=== PATIENT | female | born 1950 | race Caucasian/White ===

== ENCOUNTER 2021-09-04 09:05 | Outpatient (CLI) | payer MEDICARE | END 2021-09-04 09:06 | disposition home or self-care (01) | LOC: CSHCT 09:05 | PROVIDERS: ATTEND Internal Medicine Hematology & Oncology | DX: C54.1 Malignant neoplasm of endometrium (principal); C79.51 Secondary malignant neoplasm of bone | CPT/HCPCS: 71260; 74177; 82565 ==

== ENCOUNTER 2022-03-10 09:20 | Outpatient (CLI) | payer MEDICARE ==
[2022-03-10] MEDS ORDERED: Iopamidol 300 61% 100 ML VIAL FS ONE (09:28)
== END 2022-03-10 09:21 | disposition home or self-care (01) ==
LOC: CSHCT 09:20
PROVIDERS: ATTEND Internal Medicine Hematology & Oncology
DX: C54.1 Malignant neoplasm of endometrium (principal); C79.51 Secondary malignant neoplasm of bone; R91.8 Other nonspecific abnormal finding of lung field
CPT/HCPCS: 71260; 74177; 82565

== ENCOUNTER 2022-05-19 12:21 | Outpatient (CLI) | payer MEDICARE | END 2022-05-19 12:22 | disposition home or self-care (01) | LOC: CSHCT 12:21 | PROVIDERS: ATTEND Internal Medicine Hematology & Oncology | DX: R91.8 Other nonspecific abnormal finding of lung field (principal); C54.1 Malignant neoplasm of endometrium; C79.51 Secondary malignant neoplasm of bone | CPT/HCPCS: 71250 ==

== ENCOUNTER 2023-03-09 09:00 | Outpatient (CLI) | payer MEDICARE ==
[2023-03-09] MEDS ORDERED: Iopamidol 370 76% 100 ML VIAL ONE (09:20)
== END 2023-03-09 09:01 | disposition home or self-care (01) ==
LOC: CSHCT 09:00
PROVIDERS: ATTEND Internal Medicine Hematology & Oncology
DX: C54.1 Malignant neoplasm of endometrium (principal); C79.51 Secondary malignant neoplasm of bone; Z90.710 Acquired absence of both cervix and uterus; K44.9 Diaphragmatic hernia without obstruction or gangrene; K76.9 Liver disease, unspecified; K57.30 Diverticulosis of large intestine without perforation or abscess without bleeding
CPT/HCPCS: 71260; 74177; 82565; Q9967

== ENCOUNTER 2023-09-07 09:02 | Outpatient (CLI) | payer MEDICARE ==
[2023-09-07] MEDS ORDERED: Iopamidol 300 61% 100 ML VIAL FS ONE (10:30)
== END 2023-09-07 09:03 | disposition home or self-care (01) ==
LOC: CSHCT 09:02
PROVIDERS: ATTEND Internal Medicine Hematology & Oncology
DX: C54.1 Malignant neoplasm of endometrium (principal); C79.51 Secondary malignant neoplasm of bone; N13.30 Unspecified hydronephrosis; N13.4 Hydroureter; K57.30 Diverticulosis of large intestine without perforation or abscess without bleeding; K44.9 Diaphragmatic hernia without obstruction or gangrene; K76.9 Liver disease, unspecified
CPT/HCPCS: 71260; 74177; 82565

== ENCOUNTER 2023-11-12 11:14 | Outpatient (CLI) | payer MEDICARE ==
[2023-11-12] MEDS ORDERED: Iopamidol 300 61% 100 ML VIAL FS ONE (11:28)
== END 2023-11-12 11:15 | disposition home or self-care (01) ==
LOC: CSHCT 11:14
PROVIDERS: ATTEND Internal Medicine Hematology & Oncology
DX: C54.1 Malignant neoplasm of endometrium (principal); C79.51 Secondary malignant neoplasm of bone; Z96.0 Presence of urogenital implants; N13.30 Unspecified hydronephrosis; N13.4 Hydroureter; N28.89 Other specified disorders of kidney and ureter; K57.30 Diverticulosis of large intestine without perforation or abscess without bleeding; M89.9 Disorder of bone, unspecified; K44.9 Diaphragmatic hernia without obstruction or gangrene
CPT/HCPCS: 74177; 82565; Q9967

== ENCOUNTER 2024-04-04 12:54 | Outpatient (CLI) | payer MEDICARE | END 2024-04-04 12:55 | disposition home or self-care (01) | LOC: CSHULT 12:54 | PROVIDERS: ATTEND Internal Medicine Hematology & Oncology | DX: Z01.818 Encounter for other preprocedural examination (principal); C54.1 Malignant neoplasm of endometrium; C79.51 Secondary malignant neoplasm of bone; Z79.899 Other long term (current) drug therapy; R93.1 Abnormal findings on diagnostic imaging of heart and coronary circulation | CPT/HCPCS: 93306 ==

== ENCOUNTER 2024-07-18 12:51 | Outpatient (CLI) | payer MEDICARE | END 2024-07-18 12:52 | disposition home or self-care (01) | LOC: CSHULT 12:51 | PROVIDERS: ATTEND Internal Medicine Hematology & Oncology | DX: I42.7 Cardiomyopathy due to drug and external agent (principal); Z79.60 Long term (current) use of unspecified immunomodulators and immunosuppressants; C54.1 Malignant neoplasm of endometrium; C79.51 Secondary malignant neoplasm of bone; R93.1 Abnormal findings on diagnostic imaging of heart and coronary circulation | CPT/HCPCS: 93306 ==

== ENCOUNTER 2024-09-27 11:19 | Outpatient (CLI) | payer MEDICARE | END 2024-09-27 11:20 | disposition home or self-care (01) | LOC: CSHMAMMO 11:19 | PROVIDERS: ATTEND Family Medicine | DX: Z78.0 Asymptomatic menopausal state (principal); M81.0 Age-related osteoporosis without current pathological fracture; M85.851 Other specified disorders of bone density and structure, right thigh; M85.852 Other specified disorders of bone density and structure, left thigh; M19.90 Unspecified osteoarthritis, unspecified site | CPT/HCPCS: 77080 ==

== ENCOUNTER 2024-11-13 12:28 | Outpatient (CLI) | payer MEDICARE | END 2024-11-13 12:29 | disposition home or self-care (01) | LOC: CSHULT 12:28 | PROVIDERS: ATTEND Internal Medicine Hematology & Oncology | DX: C54.1 Malignant neoplasm of endometrium (principal); C79.51 Secondary malignant neoplasm of bone; Z79.60 Long term (current) use of unspecified immunomodulators and immunosuppressants | CPT/HCPCS: 93306 ==

== ENCOUNTER 2025-05-31 12:38 | Outpatient (CLI) | payer MEDICARE | END 2025-05-31 12:39 | disposition home or self-care (01) | LOC: CSHULT 12:38 | PROVIDERS: ATTEND Internal Medicine Hematology & Oncology | DX: C54.1 Malignant neoplasm of endometrium (principal); C79.51 Secondary malignant neoplasm of bone; I51.9 Heart disease, unspecified | CPT/HCPCS: 93306 ==

== ENCOUNTER 2025-09-12 12:48 | Outpatient (CLI) | payer MEDICARE | END 2025-09-12 12:49 | disposition home or self-care (01) | LOC: CSHULT 12:48 | PROVIDERS: ATTEND Internal Medicine Hematology & Oncology | DX: C54.1 Malignant neoplasm of endometrium (principal); C79.51 Secondary malignant neoplasm of bone; I08.0 Rheumatic disorders of both mitral and aortic valves | CPT/HCPCS: 93306 ==